=== PATIENT | female | born 1980 | race Caucasian/White ===

== ENCOUNTER 2019-08-23 06:47 | Day surgery (SDC) | payer OTHER ==
[2019-08-20 11:06] VITALS: BMI 21.9
[2019-08-23] MEDS ORDERED: MIDAZOLAM HCL 2 MG/2 ML SINGLE DOSE VIAL ONE ×2 (09:00→09:16)
--- NOTE | 2019-08-23 09:47 | OP ---
Operative Note - Note: Operative Date: 08/23/19 Pre-Operative Diagnosis: Right renal stone Operation: Right ESWL Findings: 6 mm lower pole Right renal stone Post-Operative Diagnosis: Same as Pre-op Surgeon: Kiko Moran Anesthesia: Fractional Estimated Blood Loss (mls): 0 Operative Report Dictated: Yes
[2019-08-23] MEDS ORDERED: DEXAMETHASONE SOD PHOSPHATE 4 MG/1 ML VIAL ONE (11:03)
[2019-08-23] MEDS ORDERED: ONDANSETRON 4 MG/2 ML VIAL ONE (11:03)
[2019-08-23 15:51] VITALS: BP 119/64; PULSE 84; TEMP 97.7
--- NOTE | 2019-08-24 09:19 | OP ---
DATE OF OPERATION: 08/23/2019 PREOPERATIVE DIAGNOSIS: Right renal stone. POSTOPERATIVE DIAGNOSIS: Right renal stone. PROCEDURE PERFORMED: Right extracorporeal shock wave lithotripsy. SURGEON: Sulma Scott MD ANESTHESIA: Fractional. DESCRIPTION OF PROCEDURE: The patient was brought to the operating room and placed in the supine position on the operating room table. Ultrasonography and fluoroscopy were performed. A 6-mm right lower pole stone was identified. At this point fractional anesthesia was administered, as were preoperative antibiotics. Shock wave lithotripsy was then performed. Excellent fragmentation of the stone was noted under real time ultrasonography and fluoroscopy. No complications were noted. The patient tolerated the procedure very well. SULMA SCOTT M.D. /[id number]
== END 2019-08-23 14:00 | disposition home or self-care (01) ==
LOC: JASU-SURG 06:47
PROVIDERS: ATTEND Urology
PROC: 0TF3XZZ Fragmentation in Right Kidney Pelvis, External Approach (ICD-10-PCS; principal; 2019-08-23 08:45)
DX: N20.0 Calculus of kidney (principal)
CPT/HCPCS: 84703

== ENCOUNTER 2020-05-15 04:46 | Day surgery (SDC) | payer OTHER ==
--- OUTSIDE RECORDS SUMMARY | 2020-05-05 16:04 | XMS ---
:1980 Author Organization [facility] Care Team Providers Name Role Phone EMERGENCY SERVICE, X Unavailable Unavailable ANKIT PIERCE Unavailable Unavailable Re-disclosure Warning The records that you are about to access may contain information from federally- assisted alcohol or drug abuse programs. If such information is present, then the following federally mandated warning applies: This information has been disclosed to you from records protected by federal confidentiality rules (42 CFR part 2). The federal rules prohibit you from making any further disclosure of this information unless further disclosure is expressly permitted by the written consent of the person to whom it pertains or as otherwise permitted by 42 CFR part 2. A general authorization for the release of medical or other information is NOT sufficient for this purpose. The Federal rules restrict any use of the information to criminally investigate or prosecute any alcohol or drug abuse patient.The records that you are about to access may contain highly sensitive health information, the redisclosure of which is protected by Article 27-F of the [place] State Public Health law. If you continue you may haveaccess to information: Regarding HIV / AIDS; Provided by facilities licensed or operated by the [facility] Office of Mental Health; or Provided by the [facility] Office for People With Developmental Disabilities. If such information is present, then the following [facility] mandated warning applies: This information has been disclosed to you from confidential records which are protected by state law. State law prohibits you from making any further disclosure of this information without the specific written consent of the person to whom it pertains, or as otherwise permitted by law. Any unauthorized further disclosure in violation of state law may result in a fine or usp sentence or both. A general authorization for the release of medical or other information is NOT sufficient authorization for further disclosure. Allergies and Adverse Reactions Type Description Substance Reaction Status Data Source(s ) Drug allergy No Known Drug No Known Drug [facility] Allergies Allergies [facility] Encounters Encounter Providers Location Date Indications Data Source(s ) Outpatient Attender: 11/23/2019 S-P COMPLETE [facility], 12:14:00 PM [facility] SBenedict COMPLETE Emergency Attender: 11/23/2019 VAGINAL [facility], 07:46:00 AM EDT BLEEDING [facility] ENRIQUEttender: EMERGENCY Ca re [facility] SERVICE, XAdmitter: ANKIT PIERCE VAGINAL BLEEDING Outpatient [facility] 05/20/2019 12:00:00 AM eCW3 ([place] [address] EDT - 05/20/2019 12:00:00 Health Care) AM EDT Outpatient [facility] 05/07/2019 12:00:00 AM eCW3 ([place] [address] EDT - 05/07/2019 12:00:00 Health Care) AM EDT Outpatient [facility] 04/07/2019 12:00:00 AM eCW3 ([place] [address] EDT - 04/07/2019 12:00:00 Health Care) AM EDT Immunizations Vaccine Date Status Description Data Source(s) New in 2011. IIV4 05/07/2019 10:15:00 completed eC W3 ([facility]) New in 2011. IIV4 05/07/2019 10:15:00 completed eC W3 ([facility]) Medications Medication Brand Start Product Dose Route Administrative Pharmacy [facility] Indications Reaction Description Data Name Date Form Instructions Instructions Source(s) MORphine MORphi 11/22/ 2 mg UNK active MORphine [place] Sulfate Inj ne 2020 Sulfate r Cou nty Sulfat 12:56: Injection 2 Heal th e Inj 30 PM mg IVP Care EDT Corporatio n Medication administered onsite Zofran Zofran 11/23/2019 4 mg UNK active Zofran 4mg/2mL [employer] 4mg/2mL 4mg/2mL 08:38:41 AM ([place] etron) [facility] (Onda (Onda EDT Injection Give Car e 4 mg IVP Corporation Medication administered onsite 0.9% 0.9% 11/23/2019 1000 mL UNK active 0.9% NaC l [employer] NaCl IV NaCl IV 08:38:41 AM IV 1000 mL; [facility] EDT IV rate: Care Bolus over Corporati on 30 minutes Medication administered onsite Acetaminophen Acetaminophen 11/23/2019 1000 UNK active Acetaminophen [employer] [place] IVPB ( IVPB ( 08:38:41 AM mg IVPB (fabrice lt) [facility] EDT or GT 50 kg Health C are Give 1000 mg Corpor ation IV Medication administered onsite gabapentin Gabapentin 05/07/2019 1.0 active Gabapentin eCW3 400 MG Oral 400 MG 12:00:00 AM {capsule} 400 MG ([place] Capsule EDT [place] Gabapentin Health 400 MG Care) gabapentin Gabapentin 05/07/2019 1.0 active Gabapentin eCW3 400 MG Oral 400 MG 12:00:00 AM {capsule} 400 MG ([place] Capsule T [place] Gabapentin Health 400 MG Care) gabapentin Gabapentin 05/07/2019 1.0 active Gabapentin eCW3 400 MG Oral 400 MG 12:00:00 AM {capsule} 400 MG ([place] Capsule EDT [place] Gabapentin Health 400 MG Care) gabapentin Gabapentin 05/07/2019 1.0 active Gabapentin eCW3 400 MG Oral 400 MG 12:00:00 AM {capsule} 400 MG ([place] Capsule EDT [place] Gabapentin Health 400 MG Care) ferrous Ferrous 05/07/2019 1.0 active Ferrou s eCW3 sulfate 325 Sulfate 325 12:00:00 AM {tablet} Sulfate 325 ([place] MG Oral (65 Fe) MG EDT (65 Fe) MG [place] Tablet Health Ferrous Care) Sulfate 325 (65 Fe) MG Insurance Providers Payer name Policy type Policy ID Covered Covered democrat's Policy P leslie / Coverage democrat ID relationship to Schwab Inf ormation type schwab UNK UNK UNK UNK [id number] [place] [id number] HEALTH PLANS [place] [id number] HEALTH PLANS Self Pay 18 Problems, Conditions, and Diagnoses Code Display Name Description Problem Type Effective Data Sour ce(s) Dates O03.9 Spontaneous Spontaneous Problem 11/30/2019 eCW3 ([place] 12:00:00 AM [facility] EDT Care) M10.9 Uric acid Uric acid Problem 05/11/2019 eCW3 ([place] crystallopathy crystallopathy 12:00:00 AM [facility] EDT Care) M10.9 Uric acid Uric acid Problem 05/11/2019 eCW3 ([place] crystallopathy crystallopathy 12:00:00 AM [facility] EDT Care) G89.29 Other chronic pain Other chronic pain Problem 9 eCW3 ([place] 12:00:00 AM [facility] EDT Care) G89.29 Other chronic pain Other chronic pain Problem 9 eCW3 ([place] 12:00:00 AM [facility] EDT Care) G62.9 Neuropathy Neuropathy Problem 04/07/2019 eCW3 ([place] 12:00:00 AM [facility] EDT Care) Z87.442 Personal history of PERSONAL HISTORY OF Diagnosis 020 [employer] urinary calculi URINARY CALCULI 12:14:00 PM [facility] EDT Care [place] D25.9 Leiomyoma of LEIOMYOMA OF Diagnosis 11/23/2019 [facility] r uterus, unspecified UTERUS, UNSPECIFIED 12:14:0 0 PM [facility] EDT Care [place] Z20.828 Contact with and CONTACT W AND Diagnosis 11/23/2019 [facility] sallie (suspected) EXPOSURE TO OTH 12:14:00 PM [facility] exposure to other VIRAL COMMUNICABLE EDT Care viral communicable DISEASES Corpor ation diseases D62 Acute ACUTE Diagnosis 11/23/2019 [employer] [place] posthemorrhagic POSTHEMORRHAGIC 12:14:00 PM [facility] anemia ANEMIA EDT Care [place] O03.9 Complete or COMPLETE OR UNSP Diagnosis 11/23/2019 [place] unspecified SPONTANEOUS 12:14:00 [facility] spontaneous WITHOUT EDT Care without COMPLICATION Corpor ation complication N93.9 Abnormal uterine ABNORMAL UTERINE Diagnosis 11/23/2019 [place] and vaginal AND VAGINAL 12:14:00 PM [facility] bleeding, BLEEDING, EDT Care unspecified UNSPECIFIED Corporation Results ID Date Data Source [id number] 11/24/2019 06:24:00 AM EDT [facility] [id number] Corporation Name Value Range Interpretation Description Data Sup porting Code Source(s) Document(s ) Leukocytes 11.0 k/mm3 4.5-10 <td> [employer] [#/volume] in .8 11/24/2019 [facility] Blood by k/mm3 06:24</td><td> Health Care Automated count WBC [place] </td><td><para graph styleCode="Nohelia d"> 11.0 H </paragraph><b r/> (4.5-10.8) k/mm3 </td> Erythrocytes 3.18 m/mm3 3.80-5 <td> [employer] [#/volume] in .10 11/24/2019 [facility] Blood m/mm3 06:24</td><td> Health Care RBC [place] </td><td><para graph styleCode="Nohelia d"> 3.18 L </paragraph><b r/> (3.80-5.10) m/mm3 </td> Hemoglobin 9.7 g/dL 11.6-1 <td> [employer] [Mass/volume] in 5.0 11/24/2019 [facility] Blood g/dL 06:24</td><td> Health Care HGB [place] </td><td><para graph styleCode="Nohelia d"> 9.7 L </paragraph><b r/> (11.6-15.0) g/dL </td> Erythrocyte 13.6 % 11.5-1 <td> [employer] distribution 4.5 % 11/24/2019 [facility] width [Entitic 06:24</td><td> Health Car e volume] by RDW </td><td> [place] Automated count 13.6
(11.5-14.5) % </td> Erythrocyte mean 87.4 fL 80.0-9 <td> [employer] corpuscular 6.0 fL 11/24/2019 [facility] volume [Entitic 06:24</td><td> Health Ca re volume] by MCV </td><td> Corporation Automated count 87.4
(80.0-96.0) fL </td> Hematocrit 27.8 % 36.0-4 <td> [employer] [Volume 5.0 % 11/24/2019 County Fraction] of 06:24</td><td> Health Care Blood by HCT Corporation Automated count </td><td><para graph styleCode="Nohelia d"> 27.8 L </paragraph><b r/> (36.0-45.0) % </td> Erythrocyte mean 34.9 % 32.0-3 <td> [employer] corpuscular 6.0 % 11/24/2019 [facility] hemoglobin 06:24</td><td> Health Care concentration MCHC Corporation [Mass/volume] in </td><td> Blood from Fetus by Automated 34.9 count
(32.0-36.0) % </td> Platelet mean 10.8 fL 9.8-12 <td> [employer] volume [Entitic .8 fL 11/24/2019 [facility] volume] in Blood 06:24</td><td> Health C are by Automated MPV </td><td> Corporation count 10.8
(9.8-12.8) fL </td> Erythrocyte mean 30.5 pg 27.0-3 <td> [employer] corpuscular 1.5 pg 11/24/2019 [facility] hemoglobin 06:24</td><td> Health Care [Entitic mass] MCH </td><td> Corporatio n by Automated count 30.5
(27.0-31.5) pg </td> Basophils+Eosino 1.1 % 0.0-5. <td> [employer] phils+Monocytes 0 % 11/24/2019 [facility] [#/volume] in 06:24</td><td> Health Care Blood by Eosinophils Corporation Automated count </td><td> 1.1
(0.0-5.0) % </td> Monocytes/Leukoc 5.8 % 0.0-11 <td> [employer] ytes [Pure .0 % 11/24/2019 [facility] number fraction] 06:24</td><td> Health C are in Blood by Monocytes. [place] Automated count </td><td> 5.8
(0.0-11.0) % </td> Lymphocytes 19.5 % 18.0-5 <td> [employer] [#/volume] in 3.0 % 11/24/2019 [facility] Blood by 06:24</td><td> Health Care Automated count Lymphocytes Corporation </td><td> 19.5
(18.0-53.0) % </td> Basophils 0.5 % 0.0-2. <td> [employer] [#/volume] in 0 % 11/24/2019 [facility] Blood by 06:24</td><td> [employer] Automated count Basophils [place] </td><td> 0.5
(0.0-2.0) % </td> Immature 0.4 % 0.0-0. <td> [employer] granulocytes/100 5 % 11/24/2019 [facility] leukocytes in 06:24</td><td> Health Care Blood by IG% </td><td> [place] Automated count 0.4
(0.0-0.5) %
The IG fraction represents metamyelocytes , myelocytes and/or
promyelocytes and is only reported as part of the automated
differential when found at a percentage of less than 6.
If higher than 6%, a manual differential will be performed.

(0.0-0.5) % </td> Platelets 161 k/mm3 160-41 <td> [employer] [#/volume] in 0 11/24/2019 [facility] Blood by k/mm3 06:24</td><td> [employer] Automated count Platelet Count Corporati on </td><td> 161
(160-410) k/mm3 </td> Glucose 116 mg/dL 70-105 <td> [employer] [Mass/volume] in mg/dL 11/23/2019 [facility] Blood 16:53</td><td> Health Care Glucose-Serum [place] </td><td><para graph styleCode="Nohelia d"> 116 H </paragraph><b r/> (70-105) mg/dL </td> Potassium 3.8 mEq/L 3.5-5. <td> [employer] [Moles/volume] 1 11/23/2019 [facility] in Serum or mEq/L 16:53</td><td> Health Care Plasma Potassium-Seru [place] m </td><td> 3.8
(3.5-5.1) mEq/L </td> Neutrophils [#] 72.7 % 36.0-7 <td> [employer] in Body fluid by 3.0 % 11/24/2019 [facility] Manual count 06:24</td><td> Health Care Neutrophils Corporation </td><td> 72.7
(36.0-73.0) % </td> Ovalocytes Few <td> [employer] [Presence] in 11/23/2019 [facility] Blood by Light 16:53</td><td> Health Car e microscopy Ovalocytes Corporation </td><td> Few
</td> Sodium 137 mEq/L 135-14 <td> [employer] [Moles/volume] 5 11/23/2019 [facility] in Serum or mEq/L 16:53</td><td> Health Care Plasma Sodium-Serum [place] </td><td> 137
(135-145) mEq/L </td> Chloride 110 mEq/L 98-107 <td> [employer] [Moles/volume] mEq/L 11/23/2019 [facility] in Serum or 16:53</td><td> Health Care Plasma Chloride [place] </td><td><para graph styleCode="Nohelia d"> 110 H </paragraph><b r/> (98-107) mEq/L </td> Aspartate 18 U/L 4-35 <td> [employer] aminotransferase U/L 11/23/2019 [facility] [Enzymatic 08:56</td><td> Health Care activity/volume] AST (SGOT) Corporation in Serum or </td><td> Plasma 18
(4-35) U/L </td> Creatinine 0.58 mg/dL 0.57-1 <td> [employer] [Moles/volume] .11 11/23/2019 [facility] in Serum or mg/dL 16:53</td><td> Health Care Plasma Creatinine. [place] </td><td> 0.58
(0.57-1.11) mg/dL </td> Carbon dioxide, 21 mEq/L 22-30 <td> [employer] total mEq/L 11/23/2019 [facility] [Moles/volume] 16:53</td><td> Health Car e in Serum or CO2 Corporation Plasma </td><td><para graph styleCode="Nohelia d"> 21 L </paragraph><b r/> (22-30) mEq/L </td> Urea nitrogen 8 mg/dL 6-22 <td> [employer] [Mass/volume] in mg/dL 11/23/2019 [facility] Blood 16:53</td><td> Health Care BUN </td><td> [place] 8
(6-22) mg/dL </td> Alanine 7 U/L 6-55 <td> [employer] aminotransferase U/L 11/23/2019 [facility] [Enzymatic 08:56</td><td> Health Care activity/volume] ALT (SGPT) [place] in Serum or </td><td> Plasma 7
(6-55) U/L </td> Anion gap in 6 mEq/L 7-13 <td> [employer] Serum or Plasma mEq/L 11/23/2019 [facility] 16:53</td><td> Health Care Anion Gap [place] </td><td><para graph styleCode="Nohelia d"> 6 L </paragraph><b r/> (7-13) mEq/L </td> Bilirubin.total 0.4 mg/dL 0.2-1. <td> [employer] [Mass/volume] in 3 11/23/2019 [facility] Blood mg/dL 08:56</td><td> Health Care Bilirubin - [place] Total </td><td> 0.4
(0.2-1.3) mg/dL </td> Albumin 3.9 g/dL 3.4-4. <td> [employer] [Mass/volume] in 8 g/dL 11/23/2019 [facility] Serum or Plasma 08:56</td><td> Health Ca re Albumin Corporation </td><td> 3.9
(3.4-4.8) g/dL </td> Proteins - Total 6.9 g/dL 6.4-8. <td> [employer] 3 g/dL 11/23/2019 [facility] 08:56</td><td> Health Care Proteins - Corporation Total </td><td> 6.9
(6.4-8.3) g/dL </td> Globulin 3.0 gm/dL 2.9-4. <td> [employer] [Mass/volume] in 0 11/23/2019 [facility] Serum gm/dL 08:56</td><td> Health Care Globulin [place] </td><td> 3.0
(2.9-4.0) gm/dL </td> Calcium 7.9 mg/dL 8.6-10 <td> [employer] [Mass/volume] in .2 11/23/2019 [facility] Blood mg/dL 16:53</td><td> Health Care Calcium Corporation </td><td><para graph styleCode="Nohelia d"> 7.9 L </paragraph><b r/> (8.6-10.2) mg/dL </td> Lipemic index of No Lipemia <td> [employer] Serum or Plasma 11/23/2019 [facility] 16:53</td><td> Health Care Lipemia Index Corporation </td><td> No Lipemia
</td> Icteric index of Not <td> [employer] Serum or Plasma Icteric 11/23/2019 [facility] 16:53</td><td> Health Care Icteric Index Corporation </td><td> Not Icteric
</td> Glucose 145 mg/dL 70-105 <td> [employer] [Mass/volume] in mg/dL 11/23/2019 [facility] Capillary blood 14:40</td><td> Health Ca re by Glucometer Glucose - [place] Finger Stick </td><td><para graph styleCode="Nohelia d"> 145 H </paragraph><b r/> (70-105) mg/dL </td> Hemolysis index No <td> [employer] of Serum or Hemolysis 11/23/2019 [facility] Plasma 16:53</td><td> Health Care Hemolysis Corporation Index </td><td> No Hemolysis
</td> ID Date Data Source [id number] 11/23/2019 08:45:00 AM EDT [facility] [id number] Corporation Name Value Range Interpretation Description Data Sup porting Code Source(s) Document(s ) Antibody NEG <td> [employer] Screen 11/23/2019 [facility] 08:45</td><td> Care Antibody Corporation Screen </td><td> NEG
</td> Specimen 11/26/19 <td> [employer] expiration date 20 23:59 11/23/2019 [facility] of Blood 08:45</td><td> Care Specimen Corporation Expiration Date </td><td> 11/26/2019 23:59
</td> ABO-Rh Type O POS <td> [employer] 11/23/2019 [facility] 08:45</td><td> Care ABO-Rh Type Corporation </td><td> O POS
</td> ABO O POS <td> [employer] Verification 11/23/2019 [facility] 16:00</td><td> Care ABO Corporation Verification </td><td> O POS
</td> ID Date Data Source [id number] 11/23/2019 12:00:00 AM EDT [facility] [place] Name Value Range Interpretation Code Description Data Keren rce(s) Supporting Document(s ) SARS-COV-2 [employer] [place] RNA RT-PCR [facility] This lab was ordered by [facility] and reported by [facility]. Procedure Social History Code Duration Value Status Description Data Source(s ) Smoking 12/27/2019 12:00:00 Never Smoker completed Never Smoker e CW3 ([facility]) Smoking 12/27/2019 12:00:00 Never Smoker completed Never Smoker e CW3 ([facility]) Smoking 12/27/2019 12:00:00 Never Smoker completed Never Smoker e CW3 ([facility]) Smoking 05/20/2019 12:00:00 Never Smoker completed Never Smoker e CW3 ([facility]) Vital Signs ID Date Data Source UNK Name Value Range Interpretation Code Description Data Source(s) Diastolic blood 71 {} Normal (applies to 71 {} [place] pressure non-numeric results) [facility] Corpor[facility] on Systolic blood 112 {} Normal (applies to 112 {} [place] pressure non-numeric results) [facility] ty [facility] Corporati on First Respiration 18.0000 {} Normal (applies to 18.0000 {} [place] rate Set non-numeric results) [facility] ty [facility] Corporati on Heart rate 85.0000 {} Normal (applies to 85.0000 {} [place] non-numeric results) [facility] ty [facility] Corporati on Body temperature 98.9000 {} Normal (applies to 98.9000 {} [employer] [place] non-numeric results) Coun ty [facility] Corporati on wt - obtain Normal (applies to {} [place] non-numeric results) [facility] ty [facility] Corporati on weight - kg 47.7270 {} Normal (applies to 47.7270 {} [place] non-numeric results) Coun ty [facility] Corporati on Diastolic blood 67 mm[Hg] 67 mm[Hg] eCW3 ([facility]) Systolic blood 109 mm[Hg] 109 mm[Hg] eCW3 ([facility]) Body temperature 98.6 [degF] 98.6 [degF] eCW3 ( [facility]) Heart rate 18 /min 18 /min eCW3 ([facility]) Body mass index 27.20 kg/m2 27.20 kg/m2 eCW3 ([facility] (BMI) [Ratio] [facility]) Body weight 132.4 132.4 [lb_av] eCW3 ([facility] [lb_av] [facility]) Body height 58.5 [in_i] 58.5 [in_i] eCW3 ([facility]) Diastolic blood 72 mm[Hg] 72 mm[Hg] eCW3 ([facility]) Systolic blood 121 mm[Hg] 121 mm[Hg] [facility] Body temperature 98.6 [degF] 98.6 [degF] eCW3 ( [facility]) Heart rate 18 /min 18 /min eCW3 ([facility]) Body mass index 26.70 kg/m2 26.70 kg/m2 eCW3 ([facility] elias (BMI) [Ratio] [facility]) Body weight 130.0 130.0 [lb_av] eCW3 ([facility] [lb_av] [facility]) Body height 58.5 [in_i] 58.5 [in_i] eCW3 ([facility]) Diastolic blood 75 mm[Hg] 75 mm[Hg] eCW3 ([facility]) Systolic blood 115 mm[Hg] 115 mm[Hg] [facility]CW3 [facility]) Body temperature 98.7 [degF] 98.7 [degF] eCW3 ( [facility]) Heart rate 20 /min 20 /min eCW3 ([facility]) Body mass index 26.50 kg/m2 26.50 kg/m2 eCW3 ([facility] (BMI) [Ratio] [facility]) Body weight 129 [lb_av] 129 [lb_av] eCW3 ([facility]) Body height 58.5 [in_i] 58.5 [in_i] eCW3 ([facility]) Patient Treatment Plan of Care Planned Activity Planned Date Details Description Data Source (s) MORphine Sulfate Inj 11/23/2019 12:56:30 [facility] Zofran 4mg/2mL ([place] 11/23/2019 08:38:41 [facility] Acetaminophen IVPB ( 11/23/2019 08:38:41 [facility] 0.9% NaCl IV 11/23/2019 08:38:41 [facility] poration
[2020-05-12 15:12] VITALS: BMI 22.6
--- OUTSIDE RECORDS SUMMARY | 2020-05-15 04:50 | XMS ---
:1980 Author Organization [facility] Care Team Providers Name Role Phone EMERGENCY SERVICE, X Unavailable Unavailable GLADIS PIERCE Unavailable Unavailable Re-disclosure Warning The records [...] is protected by Article 27-F of the [place] State Public Health law. If you continue you may haveaccess to information: Regarding HIV / AIDS; Provided by facilities licensed or operated by the [facility] Office of Mental Health; or Provided by the [facility] Office for People With Developmental Disabilities. If such information is present, then the following [facility] mandated warning applies: This information has been [...] law may result in a fine or snf sentence or both. A general authorization for the release of medical or other information is NOT sufficient authorization for further disclosure. Allergies and Adverse Reactions Type Description Substance Reaction Status Data Source(s ) Drug allergy No Known Drug No Known Drug [facility] Allergies Allergies [facility] Encounters Encounter Providers Location Date Indications Data Source(s ) Outpatient Attender: 11/23/2019 S-P COMPLETE [facility], 12:14:00 PM Health Care [facility]Admitter[facility] Emergency Attender: 11/23/2019 VAGINAL [facility], 07:46:00 AM EDT BLEEDING [facility] GLADISAttender: EMERGENCY C [facility] SERVICE, [facility]Admitter[facility] VAGINAL BLEEDING Outpatient [facility] 05/20/2019 12:00:00 AM eCW3 ([place] [address] EDT - 05/20/2019 12:00:00 Health Care) AM EDT Outpatient [facility] 05/07/2019 12:00:00 AM eCW3 ([place] [address] EDT - 05/07/2019 12:00:00 Health Care) AM EDT Outpatient [facility] 04/07/2019 12:00:00 AM eCW3 ([place] [address] EDT - 04/07/2019 12:00:00 Health Care) AM EDT Immunizations Vaccine Date Status Description Data Source(s) New in 2011. IIV4 05/07/2019 10:15:00 completed eC W3 ([facility]) New in 2011. IIV4 05/07/2019 10:15:00 completed eC W3 ([facility]) Medications Medication Brand Start Product Dose Route Administrative Pharmacy [facility] Indications Reaction Description Data Name Date Form Instructions Instructions Source(s) MORphine MORphi 11/22/ mg UNK active MORphine [place] Sulfate Inj ne 2020 Sulfate r Cou nty Sulfat 12:56: Injection 2 Heal th e Inj 30 PM mg IVP Care EDT Corporatio n Medication administered onsite Zofran Zofran 11/23/2019 4 mg UNK active Zofran 4mg/2mL Mobile 4mg/2mL 4mg/2mL 08:38:41 AM ([place] etron) [facility] (Onda (Onda EDT Injection Give Car e 4 mg IVP Corporation Medication administered onsite 0.9% 0.9% 11/23/2019 1000 mL UNK active 0.9% NaC l Mobile NaCl IV NaCl IV 08:38:41 AM IV 1000 mL; [facility] EDT IV rate: Care Bolus over Corporati on 30 minutes Medication administered onsite Acetaminophen Acetaminophen 11/23/2019 1000 UNK active Acetaminophen Mobile IVPB ( IVPB ( 08:38:41 AM mg IVPB (fabrice lt) [facility] EDT or GT 50 kg Health C are Give 1000 mg Corpor ation IV Medication administered onsite gabapentin Gabapentin 05/07/2019 1.0 active Gabapentin eCW3 400 MG Oral 400 MG 12:00:00 AM {capsule} 400 MG ([place] Capsule EDT [facility] Gabapentin Health 400 MG Care) gabapentin Gabapentin 05/07/2019 1.0 active Gabapentin eCW3 400 MG Oral 400 MG 12:00:00 AM {capsule} 400 MG ([place] Capsule T [facility] Gabapentin Health 400 MG Care) gabapentin Gabapentin 05/07/2019 1.0 active Gabapentin eCW3 400 MG Oral 400 MG 12:00:00 AM {capsule} 400 MG ([place] Capsule EDT [facility] Gabapentin Health 400 MG Care) gabapentin Gabapentin 05/07/2019 1.0 active Gabapentin eCW3 400 MG Oral 400 MG 12:00:00 AM {capsule} 400 MG ([place] Capsule EDT [facility] Gabapentin Health 400 MG Care) ferrous Ferrous 05/07/2019 1.0 active Ferrou s eCW3 sulfate 325 Sulfate 325 12:00:00 AM {tablet} Sulfate 325 ([place] MG Oral (65 Fe) MG EDT (65 Fe) MG [facility] Ferrous Care) Sulfate 325 (65 Fe) MG Insurance Providers Payer name Policy type Policy ID Covered Covered republican's Policy P leslie / Coverage republican ID relationship to Schwab Inf ormation type schwab [place] [id number] [employer] [id number] 2 HEALTH PLANS UNK UNK UNK UNK [id number] [place] [id number] HEALTH PLANS Self Pay 18 Problems, Conditions, and Diagnoses Code Display Name Description Problem Type Effective Data Sour ce(s) Dates O03.9 Spontaneous Spontaneous Problem 11/30/2019 eCW3 ([place] 12:00:00 AM [facility] EDT Care) M10.9 Uric acid Uric acid Problem 05/11/2019 eCW3 ([place] crystallopathy crystallopathy 12:00:00 AM [facility] EDT Care) M10.9 Uric acid Uric acid Problem 05/11/2019 eCW3 ([place] crystallopathy crystallopathy 12:00:00 AM [facility] EDT Care) G89.29 Other chronic pain Other chronic pain Problem 9 eCW3 ([place] 12:00:00 AM [facility] EDT Care) G89.29 Other chronic pain Other chronic pain Problem 9 eCW3 ([place] 12:00:00 AM [facility] EDT Care) G62.9 Neuropathy Neuropathy Problem 04/07/2019 eCW3 ([place] 12:00:00 AM [facility] EDT Care) Z87.442 Personal history of PERSONAL HISTORY OF Diagnosis 020 Mobile urinary calculi URINARY CALCULI 12:14:00 PM [employer] EDT Care orderbolt D25.9 Leiomyoma of LEIOMYOMA OF Diagnosis 11/23/2019 [facility] r uterus, unspecified UTERUS, UNSPECIFIED 12:14:0 0 PM [facility] EDT Care orderbolt Z20.828 Contact with and CONTACT W AND Diagnosis 11/23/2019 [facility] sallie (suspected) EXPOSURE TO OTH 12:14:00 PM [facility] exposure to other VIRAL COMMUNICABLE EDT Care viral communicable DISEASES Corpor ation diseases D62 Acute ACUTE Diagnosis 11/23/2019 [place] posthemorrhagic POSTHEMORRHAGIC 12:14:00 PM [employer] anemia ANEMIA EDT Care orderbolt O03.9 Complete or COMPLETE OR UNSP Diagnosis 11/23/2019 [facility] ster unspecified SPONTANEOUS 12:14:00 [facility] spontaneous WITHOUT EDT Care without COMPLICATION Corpor ation complication N93.9 Abnormal uterine ABNORMAL UTERINE Diagnosis 11/23/2019 [facility] and vaginal AND VAGINAL 12:14:00 PM [facility] bleeding, BLEEDING, EDT Care unspecified UNSPECIFIED Corporation Results ID Date Data Source [id number] 11/24/2019 06:24:00 AM EDT [facility] [id number] Corporation Name Value Range Interpretation Description Data Sup porting Code Source(s) Document(s ) Leukocytes 11.0 k/mm3 4.5-10 <td> Mobile [#/volume] in .8 11/24/2019 [facility] Blood by k/mm3 06:24</td><td> Health Care Automated count WBC orderbolt </td><td><para graph styleCode="Nohelia d"> 11.0 H </paragraph><b r/> (4.5-10.8) k/mm3 </td> Erythrocytes 3.18 m/mm3 3.80-5 <td> Mobile [#/volume] in .10 11/24/2019 [facility] Blood m/mm3 06:24</td><td> Health Care RBC orderbolt </td><td><para graph styleCode="Nohelia d"> 3.18 L </paragraph><b r/> (3.80-5.10) m/mm3 </td> Hemoglobin 9.7 g/dL 11.6-1 <td> Mobile [Mass/volume] in 5.0 11/24/2019 [facility] Blood g/dL 06:24</td><td> Health Care HGB orderbolt </td><td><para graph styleCode="Nohelia d"> 9.7 L </paragraph><b r/> (11.6-15.0) g/dL </td> Erythrocyte 13.6 % 11.5-1 <td> Mobile distribution 4.5 % 11/24/2019 [facility] width [Entitic 06:24</td><td> Health Car e volume] by RDW </td><td> orderbolt Automated count 13.6
(11.5-14.5) % </td> Erythrocyte mean 87.4 fL 80.0-9 <td> Mobile corpuscular 6.0 fL 11/24/2019 [facility] volume [Entitic 06:24</td><td> Health Ca re volume] by MCV </td><td> Corporation Automated count 87.4
(80.0-96.0) fL </td> Hematocrit 27.8 % 36.0-4 <td> Mobile [Volume 5.0 % 11/24/2019 County Fraction] of 06:24</td><td> Health Care Blood by HCT Corporation Automated count </td><td><para graph styleCode="Nohelia d"> 27.8 L </paragraph><b r/> (36.0-45.0) % </td> Erythrocyte mean 34.9 % 32.0-3 <td> Mobile corpuscular 6.0 % 11/24/2019 [facility] hemoglobin 06:24</td><td> Health Care concentration MCHC Corporation [Mass/volume] in </td><td> Blood from Fetus by Automated 34.9 count
(32.0-36.0) % </td> Platelet mean 10.8 fL 9.8-12 <td> Mobile volume [Entitic .8 fL 11/24/2019 [facility] volume] in Blood 06:24</td><td> Health C are by Automated MPV </td><td> Corporation count 10.8
(9.8-12.8) fL </td> Erythrocyte mean 30.5 pg 27.0-3 <td> Mobile corpuscular 1.5 pg 11/24/2019 [facility] hemoglobin 06:24</td><td> Health Care [Entitic mass] MCH </td><td> Corporatio n by Automated count 30.5
(27.0-31.5) pg </td> Basophils+Eosino 1.1 % 0.0-5. <td> Mobile phils+Monocytes 0 % 11/24/2019 [facility] [#/volume] in 06:24</td><td> Health Care Blood by Eosinophils Corporation Automated count </td><td> 1.1
(0.0-5.0) % </td> Monocytes/Leukoc 5.8 % 0.0-11 <td> Mobile ytes [Pure .0 % 11/24/2019 [facility] number fraction] 06:24</td><td> Health C are in Blood by Monocytes. orderbolt Automated count </td><td> 5.8
(0.0-11.0) % </td> Lymphocytes 19.5 % 18.0-5 <td> Mobile [#/volume] in 3.0 % 11/24/2019 [facility] Blood by 06:24</td><td> Health Care Automated count Lymphocytes Corporation </td><td> 19.5
(18.0-53.0) % </td> Basophils 0.5 % 0.0-2. <td> Mobile [#/volume] in 0 % 11/24/2019 [facility] Blood by 06:24</td><td> [employer] Care Automated count Basophils orderbolt </td><td> 0.5
(0.0-2.0) % </td> Immature 0.4 % 0.0-0. <td> Mobile granulocytes/100 5 % 11/24/2019 [facility] leukocytes in 06:24</td><td> Health Care Blood by IG% </td><td> orderbolt Automated count 0.4
(0.0-0.5) %
The IG fraction represents metamyelocytes , myelocytes and/or
promyelocytes and is only reported as part of the automated
differential when found at a percentage of less than 6.
If higher than 6%, a manual differential will be performed.

(0.0-0.5) % </td> Platelets 161 k/mm3 160-41 <td> Mobile [#/volume] in 0 11/24/2019 [facility] Blood by k/mm3 06:24</td><td> [employer] Automated count Platelet Count Corporati on </td><td> 161
(160-410) k/mm3 </td> Glucose 116 mg/dL 70-105 <td> Mobile [Mass/volume] in mg/dL 11/23/2019 [facility] Blood 16:53</td><td> Health Care Glucose-Serum orderbolt </td><td><para graph styleCode="Nohelia d"> 116 H </paragraph><b r/> (70-105) mg/dL </td> Potassium 3.8 mEq/L 3.5-5. <td> Mobile [Moles/volume] 1 11/23/2019 [facility] in Serum or mEq/L 16:53</td><td> Health Care Plasma Potassium-Seru orderbolt m </td><td> 3.8
(3.5-5.1) mEq/L </td> Neutrophils [#] 72.7 % 36.0-7 <td> Mobile in Body fluid by 3.0 % 11/24/2019 [facility] Manual count 06:24</td><td> Health Care Neutrophils Corporation </td><td> 72.7
(36.0-73.0) % </td> Ovalocytes Few <td> Mobile [Presence] in 11/23/2019 [facility] Blood by Light 16:53</td><td> Health Car e microscopy Ovalocytes Corporation </td><td> Few
</td> Sodium 137 mEq/L 135-14 <td> Mobile [Moles/volume] 5 11/23/2019 [facility] in Serum or mEq/L 16:53</td><td> Health Care Plasma Sodium-Serum orderbolt </td><td> 137
(135-145) mEq/L </td> Chloride 110 mEq/L 98-107 <td> Mobile [Moles/volume] mEq/L 11/23/2019 [facility] in Serum or 16:53</td><td> Health Care Plasma Chloride orderbolt </td><td><para graph styleCode="Nohelia d"> 110 H </paragraph><b r/> (98-107) mEq/L </td> Aspartate 18 U/L 4-35 <td> Mobile aminotransferase U/L 11/23/2019 [facility] [Enzymatic 08:56</td><td> Health Care activity/volume] AST (SGOT) Corporation in Serum or </td><td> Plasma 18
(4-35) U/L </td> Creatinine 0.58 mg/dL 0.57-1 <td> Mobile [Moles/volume] .11 11/23/2019 [facility] in Serum or mg/dL 16:53</td><td> Health Care Plasma Creatinine. Corporation </td><td> 0.58
(0.57-1.11) mg/dL </td> Carbon dioxide, 21 mEq/L 22-30 <td> Mobile total mEq/L 11/23/2019 [facility] [Moles/volume] 16:53</td><td> Health Car e in Serum or CO2 Corporation Plasma </td><td><para graph styleCode="Nohelia d"> 21 L </paragraph><b r/> (22-30) mEq/L </td> Urea nitrogen 8 mg/dL 6-22 <td> Mobile [Mass/volume] in mg/dL 11/23/2019 [facility] Blood 16:53</td><td> Health Care BUN </td><td> orderbolt 8
(6-22) mg/dL </td> Alanine 7 U/L 6-55 <td> Mobile aminotransferase U/L 11/23/2019 [facility] [Enzymatic 08:56</td><td> Health Care activity/volume] ALT (SGPT) orderbolt in Serum or </td><td> Plasma 7
(6-55) U/L </td> Anion gap in 6 mEq/L 7-13 <td> Mobile Serum or Plasma mEq/L 11/23/2019 [facility] 16:53</td><td> Health Care Anion Gap orderbolt </td><td><para graph styleCode="Nohelia d"> 6 L </paragraph><b r/> (7-13) mEq/L </td> Bilirubin.total 0.4 mg/dL 0.2-1. <td> Mobile [Mass/volume] in 3 11/23/2019 [facility] Blood mg/dL 08:56</td><td> Health Care Bilirubin - orderbolt Total </td><td> 0.4
(0.2-1.3) mg/dL </td> Albumin 3.9 g/dL 3.4-4. <td> Mobile [Mass/volume] in 8 g/dL 11/23/2019 [facility] Serum or Plasma 08:56</td><td> Health Ca re Albumin Corporation </td><td> 3.9
(3.4-4.8) g/dL </td> Proteins - Total 6.9 g/dL 6.4-8. <td> Mobile 3 g/dL 11/23/2019 [facility] 08:56</td><td> Health Care Proteins - Corporation Total </td><td> 6.9
(6.4-8.3) g/dL </td> Globulin 3.0 gm/dL 2.9-4. <td> Mobile [Mass/volume] in 0 11/23/2019 [facility] Serum gm/dL 08:56</td><td> Health Care Globulin Corporation </td><td> 3.0
(2.9-4.0) gm/dL </td> Calcium 7.9 mg/dL 8.6-10 <td> Mobile [Mass/volume] in .2 11/23/2019 [facility] Blood mg/dL 16:53</td><td> Health Care Calcium Corporation </td><td><para graph styleCode="Nohelia d"> 7.9 L </paragraph><b r/> (8.6-10.2) mg/dL </td> Lipemic index of No Lipemia <td> Mobile Serum or Plasma 11/23/2019 [facility] 16:53</td><td> Health Care Lipemia Index Corporation </td><td> No Lipemia
</td> Icteric index of Not <td> Mobile Serum or Plasma Icteric 11/23/2019 [facility] 16:53</td><td> Health Care Icteric Index Corporation </td><td> Not Icteric
</td> Glucose 145 mg/dL 70-105 <td> Mobile [Mass/volume] in mg/dL 11/23/2019 [facility] Capillary blood 14:40</td><td> Health Ca re by Glucometer Glucose - orderbolt Finger Stick </td><td><para graph styleCode="Nohelia d"> 145 H </paragraph><b r/> (70-105) mg/dL </td> Hemolysis index No <td> Mobile of Serum or Hemolysis 11/23/2019 [facility] Plasma 16:53</td><td> Health Care Hemolysis Corporation Index </td><td> No Hemolysis
</td> ID Date Data Source [id number] 11/23/2019 08:45:00 AM EDT [facility] [id number] Corporation Name Value Range Interpretation Description Data Sup porting Code Source(s) Document(s ) Antibody NEG <td> Mobile Screen 11/23/2019 [facility] 08:45</td><td> Care Antibody Corporation Screen </td><td> NEG
</td> Specimen 11/26/19 <td> Mobile expiration date 20 23:59 11/23/2019 [facility] of Blood 08:45</td><td> Care Specimen Corporation Expiration Date </td><td> 11/26/2019 23:59
</td> ABO-Rh Type O POS <td> Mobile 11/23/2019 [facility] 08:45</td><td> Care ABO-Rh Type Corporation </td><td> O POS
</td> ABO O POS <td> Mobile Verification 11/23/2019 [facility] 16:00</td><td> Care ABO Corporation Verification </td><td> O POS
</td> ID Date Data Source [id number] 11/23/2019 12:00:00 AM EDT [facility] orderbolt Name Value Range Interpretation Code Description Data Keren rce(s) Supporting Document(s ) SARS-COV-2 Mobile RNA RT-PCR [facility] This lab was ordered by [facility] and reported by [facility]. Procedure Social History Code Duration Value Status Description Data Source(s ) Smoking 12/27/2019 12:00:00 Never Smoker completed Never Smoker e CW3 ([facility]) Smoking 12/27/2019 12:00:00 Never Smoker completed Never Smoker e CW3 ([facility]) Smoking 12/27/2019 12:00:00 Never Smoker completed Never Smoker e CW3 ([facility]) Smoking 05/20/2019 12:00:00 Never Smoker completed Never Smoker e CW3 ([facility]) Vital Signs ID Date Data Source UNK [...] 18.0000 {} Normal (applies to 18.0000 {} Mobile rate Set non-numeric results) Coun ty Health Care Corporati on Heart rate 85.0000 {} Normal (applies to 85.0000 {} [facility] [place] non-numeric results) Coun ty Health Care Corporati on Body temperature 98.9000 {} Normal (applies to 98.9000 {} Mobile non-numeric results) Coun ty Health Care Corporati on wt - obtain Normal (applies to {} [facility] non-numeric results) Coun ty Health Care Corporati on weight - kg 47.7270 {} Normal (applies to 47.7270 {} [facility] non-numeric results) Coun ty Health Care Corporati on Diastolic blood 67 mm[Hg] 67 mm[Hg] eCW3 ([facility]) Systolic blood 109 mm[Hg] 109 mm[Hg] eCW3 ([place] [facility]) Body temperature 98.6 [degF] 98.6 [degF] eCW3 ( [facility]) Heart rate 18 /min 18 /min eCW3 ([facility]) Body mass index 27.20 kg/m2 27.20 kg/m2 eCW3 ([facility] (BMI) [Ratio] [facility]) Body weight 132.4 132.4 [lb_av] eCW3 ([place] [lb_av] [facility]) Body height 58.5 [in_i] 58.5 [in_i] eCW3 ([facility]) Diastolic blood 72 mm[Hg] 72 mm[Hg] eCW3 ([facility]) Systolic blood 121 mm[Hg] 121 mm[Hg] eCW3 ([place] [facility]) Body temperature 98.6 [degF] 98.6 [degF] eCW3 ( [facility]) Heart rate 18 /min 18 /min eCW3 ([facility]) Body mass index 26.70 kg/m2 26.70 kg/m2 eCW3 ([facility] (BMI) [Ratio] [facility]) Body weight 130.0 130.0 [lb_av] eCW3 ([place] [lb_av] [facility]) Body height 58.5 [in_i] 58.5 [in_i] eCW3 ([facility]) Diastolic blood 75 mm[Hg] 75 mm[Hg] eCW3 ([facility]) Systolic blood 115 mm[Hg] 115 mm[Hg] eCW3 ([facility]) Body temperature 98.7 [degF] 98.7 [degF] eCW3 ( [facility]) Heart rate 20 /min 20 /min eCW3 ([facility]) Body mass index 26.50 kg/m2 26.50 kg/m2 eCW3 ([facility] (BMI) [Ratio] [facility]) Body weight 129 [lb_av] 129 [lb_av] eCW3 ([facility]) Body height 58.5 [in_i] 58.5 [in_i] eCW3 ([facility]) Patient Treatment Plan of Care Planned Activity Planned Date Details Description Data Source (s) MORphine Sulfate Inj 11/23/2019 12:56:30 [facility] Zofran 4mg/2mL ([place] 11/23/2019 08:38:41 [facility] poration Acetaminophen IVPB ( 11/23/2019 08:38:41 [facility] poration 0.9% NaCl IV 11/23/2019 08:38:41 [facility] Cor poration
[2020-05-15] MEDS ORDERED: MIDAZOLAM HCL 2 MG/2 ML SINGLE DOSE VIAL ONE (17:22)
--- NOTE | 2020-05-15 17:47 | OP ---
Operative Note - Note: Operative Date: 05/15/20 Pre-Operative Diagnosis: Right renal stone Operation: Right ESWL Findings: 6 mm lower pole Right renal stone Post-Operative Diagnosis: Same as Pre-op Surgeon: Kiko Moran Anesthesia: Regional Estimated Blood Loss (mls): 0 Operative Report Dictated: Yes
[2020-05-15 18:34] VITALS: BP 123/90; PULSE 83; TEMP 98
--- NOTE | 2020-05-16 00:24 | OP ---
DATE OF OPERATION: 05/15/2020 PREOPERATIVE DIAGNOSIS: Right renal stone. POSTOPERATIVE DIAGNOSIS: Right renal stone. PROCEDURE: Right extracorporeal shockwave lithotripsy. ATTENDING: Sulma Moran M.D. ANESTHESIA: Fractional. DESCRIPTION OF PROCEDURE: Patient was brought in the operating room, placed in a supine position on the operating room table. Ultrasonography and fluoroscopy were performed. A 6-mm right lower pole stone was identified. At this point, anesthesia and preoperative antibiotics were then administered. Shockwave lithotripsy was then started. 2500 impulses at 17 joules of power were administered to the stone with excellent fragmentation of the stone was noted under realtime ultrasonography and fluoroscopy. The patient tolerated the procedure very well. DISPOSITION: To recovery room. SULMA SCOTT M.D. [id number]
== END 2020-05-15 18:44 | disposition home or self-care (01) ==
LOC: JASU-SURG 04:46
PROVIDERS: ATTEND Urology
PROC: 0TF3XZZ Fragmentation in Right Kidney Pelvis, External Approach (ICD-10-PCS; principal; 2020-05-15 17:30)
DX: N20.0 Calculus of kidney (principal)
CPT/HCPCS: 81025

== ENCOUNTER 2021-07-08 11:29 | Emergency (ER) | payer OTHER ==
[2021-07-08 11:51] VITALS: TEMP 98; BMI 26.2
[2021-07-08] MEDS ORDERED: CEPHALEXIN MONOHYDRATE 500 MG CAPSULE (UD) PO ONE (12:52)
[2021-07-08] MEDS ORDERED: CEPHALEXIN MONOHYDRATE 500 MG CAPSULE (UD) ONE (13:07)
[2021-07-08 13:49] VITALS: BP 135/79; PULSE 90
== END 2021-07-08 13:49 | disposition home or self-care (01) ==
LOC: JERFT 11:29
DX: N76.4 Abscess of vulva (principal)
CPT/HCPCS: 99283-25

== ENCOUNTER 2021-07-10 13:37 | Emergency (ER) | payer OTHER ==
[2021-07-10 14:11] VITALS: BP 117/80; PULSE 91; TEMP 97.8; BMI 26.6
[2021-07-10] MEDS ORDERED: IBUPROFEN 600 MG TABLET (FP) PO ONE ×2 (17:15→17:20)
[2021-07-10] MEDS ORDERED: SULFAMETHOXAZOLE/TRIMETHOPRIM 800MG/160MG D.S. TABLET PO ONE (17:15)
[2021-07-10] MEDS ORDERED: SULFAMETHOXAZOLE/TRIMETHOPRIM 800MG/160MG D.S. TABLET ONE (17:20)
== END 2021-07-10 17:26 | disposition home or self-care (01) ==
LOC: JERFT 13:37
PROC: 0U9MXZZ Drainage of Vulva, External Approach (ICD-10-PCS; principal; 2021-07-10)
DX: N76.4 Abscess of vulva (principal)
CPT/HCPCS: 99283-25

== ENCOUNTER 2021-07-18 12:41 | Emergency (ER) | payer OTHER ==
[2021-07-18 13:50] VITALS: BP 124/83; PULSE 95; TEMP 98; BMI 30.2
== END 2021-07-18 15:40 | disposition home or self-care (01) ==
LOC: JER 12:41
DX: L03.115 Cellulitis of right lower limb (principal); R42 Dizziness and giddiness
CPT/HCPCS: 99281-25

== ENCOUNTER 2021-12-07 10:48 | Emergency (ER) | payer OTHER ==
[2021-12-07 11:05] VITALS: BP 127/81; PULSE 78; TEMP 98.7; BMI 24.0
[2021-12-07] MEDS ORDERED: SODIUM CHLORIDE 1,000 ML IV STA (11:28)
[2021-12-07] MEDS ORDERED: ACETAMINOPHEN 1000 MG/100 ML BAG IVPB ONE (11:37)
[2021-12-07] MEDS ORDERED: ACETAMINOPHEN INJECTION 100 ML IVPB ONE (11:53)
[2021-12-07 11:55] LABS: BASO % 0.8 % (0-2.0); HEMATOCRIT 37.5 % (32.4-45.2); HEMOGLOBIN 12.7 GM/dL (10.7-15.3); LYMPH % 26.9 % (8-40); MCH 28.2 pg (25.7-33.7); MCHC 33.8 g/dl (32.0-36.0); MEAN CELL VOLUME 83.7 fl (80-96); MEAN PLT VOLUME 8.7 fl (7.5-11.1); MONO % 6.4 % (3.8-10.2); NEUT % 63.9 % (42.8-82.8); PLATELET COUNT 227 10^3/uL (134-434); RBC 4.48 M/mm3 (3.60-5.2); RDW 14.1 % (11.6-15.6); WHITE BLOOD COUNT 6.1 K/mm3 (4.0-10.0)
[2021-12-07 12:23] LABS: CALCIUM 8.8 mg/dL (8.5-10.1)
[2021-12-07 12:24] LABS: ALBUMIN 3.8 g/dl (3.4-5.0); BLOOD UREA NITROGEN 9.8 mg/dL (7-18); MAGNESIUM 2.3 mg/dL (1.8-2.4)
[2021-12-07 12:27] LABS: CREATININE 0.5 mg/dL (0.55-1.3)
[2021-12-07 12:28] LABS: BILIRUBIN,TOTAL 0.3 mg/dL (0.2-1)
== END 2021-12-07 14:23 | disposition home or self-care (01) ==
LOC: JER 10:48
PROC: 3E033GC Introduction of Other Therapeutic Substance into Peripheral Vein, Percutaneous Approach (ICD-10-PCS; principal; 2021-12-07)
DX: M94.0 Chondrocostal junction syndrome [Tietze] (principal)
CPT/HCPCS: 36415; 71046-TC-FY; 80053; 83735; 84484; 84703; 85025; 93005; 93010; 96361; 96374; 99285-25